=== PATIENT | female | born 1935 | race Caucasian/White ===

== ENCOUNTER → 2016-09-26 | Outpatient (CLI) | payer OTHER ==
[~2016-09-26] VITALS: Ht 175.3 cm; Wt 93.0 kg
[~2016-09-26] MED LIST: AMIO200T4 PO; CALC12502 PO; DABI150C PO; DVN/160 PO; DVN80 PO; FOLITAB21 PO; GLC/500 PO; GLYB2.5T7 PO; HYDR-4717 PO; LANS30CA12 PO; MAGN400T6 PO; MISCCAP80 PO; MULT-506 PO; OMEG10007 PO; ROSU5TAB PO
[2016-09-26 15:32] VITALS: BP 152/74; PULSE 67; Ht 175.3 cm; Wt 93.0 kg
== END | disposition home or self-care (01) ==
LOC: C.NEUR 14:10
PROVIDERS: ATTEND Physician Assistant Medical
DX: G47.33 Obstructive sleep apnea (adult) (pediatric) (principal); I48.91 Unspecified atrial fibrillation; D64.9 Anemia, unspecified; R53.83 Other fatigue; R53.1 Weakness

== ENCOUNTER → 2016-11-09 | Outpatient (CLI) | payer OTHER ==
--- NOTE | 2016-11-10 08:54 | PAP/PSG TECHNICIAN REPORT ---
[facility] [employer] Polysomnogram Report Study name: None Report date: 11/10/2016 Study date: 11/09/2016 Referring Physician: Axel Rolle M.D. Name: JOÃO DOMINIQUE Interpreting Physician: Axel Rolle M.D. Date of : 1935 [employer] Mach[employer]ist: Jeimy Gallardo RPS. Sex: Female Age: 80 StudyType: PSG Weight: 205 lbs Height: 80 years, Height 5' 8" Neck Circum:13inches BMI: 31.17 Medications: Levothyroxine 25mcg, Lansoprazole 30mg. Amiodarone 200mg, Valsartan 80mg, Hydralazine 50mg, Pradaxa 150mg, ASA 81mg, Metformin 500mg, Crestor 5mg Patient History Study started on room air with no ETCO2 monitoring in room #6. 80 yr old female here tonight for a diagnostic psg. She has a history of MAXX and atrial fibrillation. She had a cpap study done June 2015 and used cpap for 6 months but stopped because she noticed no improvement. She complains of having no stamina. She is having an allergy flare-up tonight. Her states that she does not snore. Her neck circ=13inches.Her ESS=9/24. Parameters Monitored NPSG: E1-M2, E2-M1, Fp1-M2, Fp2-M1, F3-M2, F4-M2, F4-M1, C3-M2, C4-M2, C4-M1, O1-M2, O2-M2, O2-M1, T3-M2, T4-M1, P3-M2, P4-M1, CHIN1, CHIN2, HR, EKG, Legs, PFLOW, SNOR, FLOW, CFLOW, Tidal Volume, THOR, ABDO, SpO2, PLTH, CPRESS, ETCO2 Wave, ETCO2, pH Sleep Architecture Sleep Stages Time at Lights Off 8:54:13 PM STAGES Time (min.) TST (%) Time at Lights On 4:51:13 AM Wake 40.5 -- Total Recording Time (TRT) 477.00 min. N1 12.0 3 Total Sleep Period (TSP) 463.5 min. N2 286.0 66 Total Sleep Time (TST) 436.5min. N3 55.5 13 Awake Time 40.5 min. REM 83.0 19 Wake after Sleep Onset 29.5 min. Sleep Efficiency (SE) 92 % Sleep Onset Latency (MODESTA) 11.0 min. Number of Stage 1 Shifts None Awakenings 9 Stage Changes 66 Number of REM periods 7 REM 83.0 19 REM Latency 69.0 min. NREM 353.5 81 Body Position Analysis Supine Right Left Side Prone Vertical Total Sleep Time (min.) 5.3 0.0 436.5 436.50 0.0 0.0 Total Sleep Time (%) 0% 0% 100% 100 0% N/A% Total Sleep Time REM (min.) 0.0 0.0 83.0 None 0.0 0.0 Total Sleep Time NREM (min.) 0.0 0.0 353.5 None 0.0 0.0 Intermittent Wake (min.) 5.3 0.0 35.2 None 0.0 0.0 Total Sleep Period (%) 0% None None None None None Arousals Myoclonus (PLM) * Events Count Index Events Count Index Spontaneous 13 2 Events Awake (PLMW) 108 160.0 Respiratory 5 0.7 Events Asleep w/ Arousal (PLMA) 19 2.6 PLM 19 3 Events Asleep w/o Arousal (PLMS) 167 23.0 Snoring 9 1 Total Asleep 186 25.6 Total 46 6 Total 294 37 Respiratory Analysis * CA OA MA CH H RERA Total Count 0 0 0 0 24 0 24 Index 0.0 0.0 0.0 0 3.3 0 3.3 Mean Duration 0.0 0.0 0.0 0.00 34.4 0.0 34.4 Longest Duration 0.0 0.0 0.0 0.00 0.0 0.0 60.3 Respiratory Event Summary Total Supine ~Supine Right Left Prone REM NREM Apneas Count 0 N/A 0 N/A 0 N/A 0 0 Index 0.0 N/A 0 N/A 0.0 N/A 0 0 Hypopneas (4% Desat) Count 24 N/A 24 N/A 24 N/A 15 9 Index 3.3 N/A 3 N/A 3.3 N/A 10.8 1.5 Apneas & All Hypopneas Count 24 N/A 24 N/A 24 N/A 15 9 Index 3.3 N/A 3 N/A 3 N/A 10.8 1.5 Respiratory Events (Credit Risk Specialist+All Hyp+RERA) Count 24 N/A 24 N/A 24 N/A 15 9 Index 3.3 N/A 3 N/A 3.3 N/A 10.8 1.5 Respiratory Related Arousal Count 5 N/A 5 N/A 5 N/A 1 4 Index 0.7 N/A 1 N/A 1 N/A 1 1 Snoring Analysis Supine Right Left Prone REM NREM Total Snore duration 14.1 min Snores count N/A N/A 755 N/A 133 622 755 Snore mean duration 1.1 Sec Snores index N/A N/A 104 N/A 96.1 105.6 103.8 TST with snoring (%) 3.2% Desaturation Event Summary: Minimum %SpO2 Event Count Mean/Min/Max Duration(sec.) Desaturation Index % Time In Bed > 90 33 45.1 / 17.0 / 60.0 5.1 83.5 86 - 90 8 34.1 / 17.0 / 53.8 6.9 14.9 81 - 85 0 N/A 0.0 1.4 76 - 80 0 N/A 0.0 0.1 71 - 75 0 N/A 0.0 0.0 66 - 70 0 N/A 0.0 0.0 61 - 65 0 N/A 0.0 0.0 56 - 60 0 N/A 0.0 0.0 51 - 55 0 N/A 0.0 0.0 < 50 0 N/A 0.0 0.0 Total REM NREM Awake <50% 0.0 min. 0.0 min. 0.0 min. 0.0 min. 51 - 60% 0.0 min. 0.0 min. 0.0 min. 0.0 min. 61 - 70% 0.0 min. 0.0 min. 0.0 min. 0.0 min. 71 - 80% 0.4 min. 0.4 min. 0.0 min. 0.0 min. 81 - 90% 76.7 min. 32.6 min. 42.5 min. 1.6 min. 91 - 100% 391.1 min. 50.0 min. 311.0 min. 30.2 min. Average 92 90 92 93 Minimum SpO2 79 79 83 87 Desaturation Event Index 4.4 10.1 3.1 4.4 # Desat. Events below 89% 16 11 4 1 Time(%) with Saturation below 89% 4.2 3.5 0.7 0.1 Time(min.) with Saturation below 89% 19.9 16.3 3.3 0.3 Time (mins) REM (mins) NREM (mins) % of TST SpO2 Below 90% 25 14 N11 7.9 SpO2 Below 88% 10 0 0 3 Heart Rate Analysis Min (bpm) Max (bpm) Average (bpm) Awake 52 180 67 NREM 59 74 65 REM 58 71 62 Overall 58 74 65 Supplemental O2 Values Minimum O2 level: None Value Start Time End Time [employer] Comments Mrs. Cordon slept in the left and supine positions. No cardiac arrhythmia noted. PLM's were noted. No bruxism noted. Snoring was noted and scored as a 1 on a scale of 1 through 5. (0=no snoring, 5=snoring loud enough to be heard through a closed door or down the [address]). She awoke coughing several times throughout the night. She awoke once to use the restroom during the night. She stated that she slept about the same as when at home. The final report will be interpreted and signed by a sleep physician. The completed physician report will then be placed in the patient medical record. Therapy (cm H2O) 0 TIB (min.) 477.0 TST (min.) 436.5 Sleep Onset (min.) 11.0 REM Onset From Sleep (min.) 69.0 Sleep Efficiency % 92 Wakefulness (%) 8 Wakefulness (min.) 40.5 NREM 1 (%) 3 NREM 1 (min.) 12.0 NREM 2 (%) 66 NREM 2 (min.) 286.0 NREM 3 (%) 13 NREM 3 (min.) 55.5 REM (%) 19 REM (min.) 83.0 # Arousals 46 Arousal Index 6 # Snore 755 Snore Index 103.8 AHI 3.3 AHI Supine N/A AHI Non-Supine 3 NREM AHI 1.5 REM AHI 10.8 RDI 3.3 # Obstructive Apnea 0 # Central Apnea 0 # Mixed Apnea 0 # Hypopneas 24 RERAs 0 Total Respiratory Events 25 Time Below SpO2 89% (min.) 19.6 Mean NREM SpO2 (%) 92 Mean REM SpO2 (%) 90 Mean Sleep SpO2 (%) 92 Min NREM SpO2 (%) 83 Min REM SpO2 (%) 79 Position Supine (min.) 5.3 Position Non-supine (min.) 436.5 LM Index Sleep 25.6 LM Index NREM 27.7 LM Index REM 16.6 Mean Heart Rate (bpm) 65 Min Heart Rate (bpm) 58
--- NOTE | 2016-11-14 12:49 | POLYSOMNOGRAPH REPORT ---
CLINICAL DATA: 80-year-old female with history of sleep apnea and atrial fibrillation. She had a CPAP study in 2016 and used CPAP for 6 months but stopped because she did not notice any improvement. She does have fatigue. Her does not report loud snoring. SLEEP ARCHITECTURE: Total sleep period was 463.5 minutes. Total sleep time was 436.5 minutes divided between 353.5 minutes of non-REM sleep and 83 minutes of REM sleep. Sleep onset latency was 11 minutes. REM latency was 69 minutes. Sleep efficiency was 92%. Wake after sleep onset was 29.5 minutes. Sleep consisted of stage N1 3%, N2 66%, N3 13%, REM 19%. AROUSAL DATA: 46 arousals were recorded for an index of 6 per hour. PLM DATA: Mildly elevated limb movements during sleep were noted. There 186 limb movements during sleep noted for an index of 25.6 per hour with arousal index of 2.6 per hour. RESPIRATORY DATA: There was no evidence of clinically significant sleep apnea seen. The AHI was 3.3. There were 24 hypopneic episodes, the mean duration of which was 34 seconds. OXIMETRY DATA: Mild nocturnal hypoxemia was seen only during that time when she was having her hypopneic episodes. Oxygen yolis was 79% during REM. The mean saturation was 92%. Time below 88% was 10 minutes. EKG: Heart rates ranged from 58-74 beats per minute. No arrhythmias were noted. CONTROL AND [employer]OV[employer] COMBAT RESCUE'S COMMENTS: The patient slept in the left and supine positions. Snoring was mild, rated 1 on a scale of 1-5. IMPRESSION: No evidence of clinically significant sleep apnea/hypopnea. There was some mild nocturnal hypoxemia for a short time during an episode of REM sleep and hypopnea. Otherwise O2 saturations remained normal. RECOMMENDATIONS: The patient should continue to practice good sleep hygiene. There is nothing to suggest that CPAP will be of benefit. Weight loss may help. Clinical correlation is needed. [facility] CENTERDebora
== END | disposition home or self-care (01) ==
LOC: C.NEUR 20:00
PROVIDERS: ATTEND Internal Medicine Pulmonary Disease
DX: D64.9 Anemia, unspecified (principal); I48.91 Unspecified atrial fibrillation; R53.83 Other fatigue; G47.33 Obstructive sleep apnea (adult) (pediatric); R53.1 Weakness

== ENCOUNTER → 2016-11-14 | Outpatient (CLI) | payer OTHER ==
[~2016-11-14] VITALS: Ht 175.3 cm; Wt 92.9 kg
[2016-11-14 15:21] VITALS: BP 137/56; PULSE 77; Ht 175.3 cm; Wt 92.9 kg
== END | disposition home or self-care (01) ==
LOC: C.NEUR 14:35
PROVIDERS: ATTEND Internal Medicine Pulmonary Disease
DX: R53.1 Weakness (principal); I48.91 Unspecified atrial fibrillation; D64.9 Anemia, unspecified; D50.9 Iron deficiency anemia, unspecified

== ENCOUNTER → 2017-03-08 | Outpatient (CLI) | payer OTHER ==
[2017-03-08 14:53] LABS: HEMATOCRIT 44.3 % (37-47); MEAN CORPUSCULAR HEMOGLOBIN 27.3 pg (25-34); MEAN CORPUSCULAR HGB CONC 31.4 g/dl (32-36); PLATELET COUNT 159 K/uL (130-400); RED BLOOD COUNT 5.09 M/uL (4.2-5.4); WHITE BLOOD COUNT 8.47 K/uL (4.8-10.8)
[2017-03-08 15:23] LABS: ALT/SGPT 61 U/L (12-78); AST/SGOT 42 U/L (15-37); BLOOD UREA NITROGEN 16 mg/dl (7-18); BUN/CREATININE RATIO 16.6 (10-20); CALCIUM 9.7 mg/dl (8.5-10.1); CARBON DIOXIDE 28 mmol/L (21-32); CHLORIDE 103 mmol/L (98-107); CREATININE 0.94 mg/dl (0.60-1.20); GLUCOSE 91 mg/dl (70-99); POTASSIUM 3.8 mmol/L (3.5-5.1); SODIUM 140 mmol/L (136-145)
[2017-03-08 15:27] LABS: ALB/GLOB RATIO 1.1 (0.9-2); ALKALINE PHOSPHATASE 62 U/L (45-117); CHOLESTEROL 128 mg/dl (0-200); CHOLESTEROL/HDL RATIO 1.9; HDL CHOLESTEROL 68 mg/dl; LDL CHOLESTEROL CALCULATED 29 mg/dl; TRIGLYCERIDES 154 mg/dl (0-150); VERY LOW DENSITY LIPOPROT CALC 31 mg/dl
[2017-03-08 15:36] LABS: RATIO 7.2 mcg/mg (0-30.0)
[2017-03-09 06:30] LABS: ESTIMATED AVERAGE GLUCOSE 134 mg/dl; HA1C FLAG Normal (Normal)
--- NOTE | 2017-03-16 07:30 | CODING QUERY MEDICAL NECESSITY ---
SUPPORTING DIAGNOSIS NEEDED A supporting diagnosis is required for the test/procedure performed on this patient in order for us to be reimbursed by the patient's insurance. Please provide a supporting diagnosis for the following test/procedure listed below next to the test name along with your signature. *If there is no additional diagnosis for this patient that would support the following test/procedure please document that below next to the test/procedure. Test(s)/Procedure(s) that require a supporting diagnosis: * VITAMIN D, 25-HYDROXY DIAGNOSIS: Provider Signature: Date: Thank you Tasha Jorgensen [employer] Once completed, please kindly fax back to [phone] For questions please call [phone]
== END | disposition home or self-care (01) ==
LOC: C.LAB1850 12:23
PROVIDERS: ATTEND Internal Medicine Endocrinology, Diabetes & Metabolism
DX: E03.9 Hypothyroidism, unspecified (principal); E11.9 Type 2 diabetes mellitus without complications; Z86.39 Personal history of other endocrine, nutritional and metabolic disease; I10 Essential (primary) hypertension

== ENCOUNTER → 2017-09-12 | Outpatient (CLI) | payer OTHER | END | disposition home or self-care (01) | LOC: C.LAB1850 12:54 | PROVIDERS: ATTEND Internal Medicine Endocrinology, Diabetes & Metabolism | DX: E11.9 Type 2 diabetes mellitus without complications (principal) ==